=== PATIENT | female | born 1995 | race Caucasian/White ===

== ENCOUNTER 2020-08-12 17:06 | Emergency (ER) | payer MEDICAID, SELFPAY ==
[2020-08-12 19:06] VITALS: BP 164/82; PULSE 100; RESP 16; TEMP 37.6; O2SAT 100; BMI 27.4
--- NOTE | 2020-08-12 19:17 | ED_ITS ---
HPI - Skin/Abscess/Foreign Bdy General Chief complaint: Skin/Abscess/Foreign Body Stated complaint: rash Time Seen by Provider: 08/12/20 19:17 Source: patient Mode of arrival: ambulatory Limitations: no limitations History of Present Illness HPI narrative: 25 y/o female presenting with 3 weeks of red, raised, blotchy, itchy rash to her body. She reports the rash started shortly after she got a new comforter for her bed. It also started shortly after she took an unknown OTC medication for sinus problems, does not recall the name. She went to an Urgent Care last week who prescribed her Zyrtec. She reports some improvement with this. When she forgot to take it her itching got significantly worse. The rash has been spreading and it is now on her arms, legs, abdomen and back. She denies wheezing, SOB or facial swelling. No history of similar episodes. MD complaint: rash Onset (ago): week(s) (3) Tetanus up to date: unsure Location: generalized Severity: moderate Quality: burning, constant and pruritic Pain Consistency: constant Relieving factors: medication Related Data Previous Rx's Medication Instructions Recorded diphenhydramine HCl [Benadryl 25 mg PO TID PRN #20 tab 08/12/20 Allergy] hydrocortisone 1 appl TOPICAL BID #28.35 g 08/12/20 prednisone 10 mg PO PER PKG DIR #48 ea 08/12/20 Allergies Allergy/AdvReac Type Severity Reaction Status Date / Time No Known Allergies Allergy Unverified 01/10/20 17:11 [No Known Allergies*] Review of Systems 2 Review of Systems: Constitutional: No Fever, No Chills Cardiovascular: No Chest Pain, No SOB, Respiratory: No Cough, No Sputum, No Wheezing, No dyspnea Gastrointestinal: No Nausea, No Vomiting, No Diarrhea, No abdominal Pain Genitourinary: No Dysuria, No Urinary Frequency, No Hematuria Musculoskeletal: No joint pain, No Myalgias Skin: No Skin Lesions, + rash Neuro: No Weakness, No Numbness, No Dizziness, No Headache Heme/Lymph: No Bruising, No Lymphadenopathy PMFSH Past Medical History Attestation statement: The following information was validated with the patient. Social History Social History Advance Directives: No Advance Directives Information Provided: Yes Physical Exam Vital Signs: Vital Signs: Last Vital Signs Temp 99.7 F 08/12/20 19:06 Pulse 100 08/12/20 19:06 Resp 16 08/12/20 19:06 BP 164/82 H 08/12/20 19:06 Pulse Ox 100 08/12/20 19:06 Body Mass Index 27.4 Appearance: Alert. Oriented X3. No acute distress. HEENT: normal inspection, no facial swelling. CVS: Normal heart rate and rhythm. Pulses normal. Respiratory: No respiratory distress. Lung sounds clear throughout. Skin: Skin warm and dry. Normal skin color. Normal skin turgor. Erythematous blotchy papular rash on forearms,lower legs, abdomen and lower back. +blanching. +pruruitic, no warmth. Extremities: blotchy, red, rash scattered on all 4 extremities, no swelling, no cellulitic areas, no trauma Neuro: Oriented X 3. Non-focal. Steady gait. Course Course Course Narrative: 25 y/o female presenting with pruritic rash on extremities and trunk after using a new comforter. Likely contact or irritant dermatitis. Lungs are clear, no airway involvement. Some improvement with Zyrtec initially. Will add Benadryl and steroid taper. Advised to discard new comforter and f/u with her PCP this Tuesday. She agrees with plan and will come back to the ER if symptoms worsen despite treatment. Stable for discharge. Critical Care Time Critical Care Time Critical Care Time: No Discharge Plan Discharge Clinical Impression: Contact dermatitis Qualifiers: Contact dermatitis type: irritant Contact dermatitis trigger: unspecified trigger Qualified Code(s): L24.9 - Irritant contact dermatitis, unspecified cause Patient Disposition: Home, Self-Care Instructions: Contact Dermatitis (ED) Additional Instructions: Recommend changing your comforter. Use hypoallergienic laundry detergent. Take Benadryl 25-50 mg every 6 hours as needed for itching. Take the Prednisone taper as prescribed. Do not stop this until it is completely gone. Follow up with your doctor this week. If you have worsening rash or develop wheezing, facial swelling or any other concerning symptom come back to the ER for further evaluation. Prescriptions: New prednisone 10 mg tablets,dose pack 10 mg PO PER PKG DIR Qty: 48 RF: 0 diphenhydramine HCl [Benadryl Allergy] 25 mg tablet 25 mg PO TID PRN (Reason: itching) Qty: 20 RF: 0 hydrocortisone 2.5 % ointment 1 appl topical BID Qty: 28.35 RF: 0 Stand Alone Forms: Work/School Release
== END 2020-08-12 20:03 | disposition home or self-care (01) ==
LOC: HO.ED 19:27
PROVIDERS: Emergency Provider Emergency Medicine; PCP Internal Medicine
DX: L24.9 Irritant contact dermatitis, unspecified cause (principal); R21 Rash and other nonspecific skin eruption
CPT/HCPCS: 99283; 99284

== ENCOUNTER → 2021-04-30 15:33 | Outpatient (BNVA) | payer MEDICAID, SELFPAY | PROVIDERS: Visit Provider Obstetrics & Gynecology ==

== ENCOUNTER 2021-09-12 12:54 | Emergency (ER) | payer MEDICAID, SELFPAY ==
[2021-09-12] VITALS (7 sets, daily range): BP systolic 128–149; BP diastolic 86–95; PULSE 85–121; RESP 14–18; TEMP 36.9; O2SAT 98–100; BMI 29.7
[2021-09-12 14:18] LABS: MANUAL DIFF FLAG NO
[2021-09-12 14:19] LABS: Basophils Percent Auto 0.4 % (0-2); Eosinophils Absolute Auto 0.2 X10*3/uL (0.0-0.4); Eosinophils Percent Auto 3.4 % (0-4); Hematocrit 39.6 % (37.0-47.0); Hemoglobin 13.1 g/dl (12.0-16.0); Imm Gran Abs Auto 0.02 X10*3/uL (0.00-0.03); Imm Gran Pct Auto 0.3 % (0.0-0.4); Lymphocytes Absolute Auto 1.7 X10*3/uL (1.2-4.9); Mean Corpuscular HGB Conc 33.1 g/dl (31.0-35.0); Mean Corpuscular Hemoglobin 28.4 pg (27.0-33.0); Mean Corpuscular Volume 85.7 fL (80.0-98.0); Mean Platelet Volume 9.2 fL (9.4-12.3); Monocytes Absolute Auto 0.5 X10*3/uL (0.1-1.2); Monocytes Percent Auto 7.4 % (2-11); Neutrophils Absolute Auto 4.3 x10*3/uL (2.0-8.3); Neutrophils Percent Auto 63.5 % (45-73); Platelet Count 290 X10*3/uL (160-400); Red Blood Count 4.62 X10*6/uL (4.20-5.50); Red Cell Distribution Width 12.8 % (11.0-16.0); White Blood Count 6.8 X10*3/uL (4.8-10.8)
[2021-09-12 14:33] LABS: Anion Gap 10 (12-20); Blood Urea Nitrogen 8 mg/dL (9-16); Calcium 9.2 mg/dL (8.4-10.2); Carbon Dioxide 25 mmol/L (22-29); Chloride 107 mmol/L (96-108); Creatinine Clr Calc Pharmacy 104.4; Estimated Glomerular Filt Rate > 60; Glucose Random 102 mg/dL (60-115); Potassium 3.9 mmol/L (3.3-5.1); Sodium 138 mmol/L (135-145)
--- NOTE | 2021-09-12 15:39 | ED.FEMALEGU ---
HPI - Female Genitourinary General Chief complaint: Vaginal Bleeding Stated complaint: dizziness Time Seen by Provider: 09/12/21 15:34 Source: patient Mode of arrival: ambulatory Limitations: no limitations History of Present Illness HPI Narrative: 26 yo female here with reports of vaginal bleeding since yesterday. She took herself off Depo 1 month ago. She tells me she is not sexually active currently. She denies any associated abdominal pain, fevers, chills, vaginal discharge, vomiting. Patient tells me that she has used multiple pads yesterday and today. She tells me when she walks around she feels very lightheaded and dizzy. Related Data Home Medications Medication Instructions Recorded Confirmed cetirizine 10 mg tablet 10 mg PO DAILY 04/30/21 medroxyprogesterone 150 mg/mL mg IM 04/30/21 intramuscular suspension metoprolol succinate 25 mg 12.5 mg PO DAILY 04/30/21 tablet,extended release 24 hr Previous Rx's Medication Instructions Recorded diphenhydramine HCl 25 mg tablet 25 mg PO TID PRN #20 tab 08/12/20 (Benadryl Allergy) Allergies Allergy/AdvReac Type Severity Reaction Status Date / Time No Known Allergies Allergy Verified 09/12/21 13:18 [No Known Allergies*] Review of Systems Review of Systems: Yes all other systems are reviewed and are negative Constitutional: Constitutional: Reports no additional constitutional complaints, Denies body ache(s), Denies chills, Denies fever(s), Denies headache(s) and Denies weakness Eyes: Eyes: Reports no additional eye complaints and Denies change in vision ENT: Reports system reviewed and no additional complaints, except as documented, Denies dizziness, Denies headache(s), Denies nasal congestion, Denies nasal discharge and Denies neck pain Cardiovascular: Cardiovascular: Reports no additional cardiovascular complaints, Denies chest pain, Denies leg edema and Denies dyspnea Respiratory: Respiratory: Reports no additional respiratory complaints, Denies cough and Denies dyspnea Gastrointestinal: Gastrointestinal: Reports no additional gastrointestinal complaints, Denies abdominal pain, Denies diarrhea, Denies nausea and Denies vomiting Genitourinary: Genitourinary: Reports no additional female genitourinary complaints, Reports abnormal vaginal bleeding and Denies urinary incontinence Musculoskeletal: Musculoskeletal: Reports no additional musculoskeletal complaints, Denies back pain, Denies arthralgias, Denies joint swelling, Denies neck pain, Denies numbness and Denies tingling Integumentary/Breasts: Skin/Breast: Reports system reviewed and no additional complaints, except as docu and Denies rash Neurologic: Reports system reviewed and no additional complaints, except as documented, Denies Abnormal speech present, Denies dizziness, Denies headache(s), Denies numbness, Denies tingling and Denies weakness PMF Past Medical History Attestation statement: The following information was validated with the patient. Source: old records reviewed and nursing notes reviewed Medical History Hypertension Social History Social History Alcohol intake: never Patient Tobacco Use Status: Never used Tobacco Advance Directives: No Advance Directives Information Provided: No Physical Exam Vital Signs: Vital Signs: Last Vital Signs Temp 98.4 F 09/12/21 15:55 Pulse 97 09/12/21 19:43 Resp 14 09/12/21 19:43 BP 134/89 09/12/21 19:43 Pulse Ox 98 09/12/21 19:43 BMI result Body Mass Index 29.7 Const: General: cooperative, healthy appearing, comfortable and no acute distress Orientation/consciousness: patient oriented x3 Limitations: no limitations HEENT: Head: Yes normal to inspection Ears: hearing grossly normal bilaterally General nose exam: Normal external nose present Face and sinus: Yes normal facial exam Mouth: Normal oral and palatal mucosa present Throat: Yes posterior oropharynx normal Eyes: General: appearance normal, both eyes and all related structures Pupils: Equal, round and reactive pupils present Neck: Neck: Yes normal visual inspection Chest: Chest palpation & inspection: normal inspection of the chest Resp: Effort & Inspection: normal respiratory effort Auscultation: clear to auscultation bilaterally Cardio: Rate: regular rate Rhythm: regular rhythm Peripheral pulses: Peripheral pulses 2+ throughout GI: Inspection: Yes normal to inspection Palpation (GI): Soft to palpation and nontender Auscultation: normal bowel sounds : 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 CMT or adenxal tenderness External Female Exam: normal external appearance Speculum Exam - Vagina: vaginal bleeding (moderate-no clots) Speculum Exam - Cervix: normal appearance of the cervix Bimanual exam- vagina & uterus: normal bimanual exam Bimanual Exam- Adnexa, other: normal adnexae OB/external & speculum: vaginal bleeding (moderate-no clots) Back/Spine/Pelvis: Thoracic/Lumbar Spine: thoracic and lumbar spine normal to inspection Skin: General skin exam: no rashes or lesions noted Neuro: General: patient oriented x3, no focal motor deficits and normal sensation to monofilament Cranial nerves: Yes Equal, round and reactive pupils present Cognition (Neuro): normal cognition Speech: No Abnormal speech present Gait exam (Neuro): Normal gait present Motor exam (neuro): 5/5 motor strength present throughout Extrem: General: Yes normal to inspection, Yes no pedal edema and Yes no calf tenderness Course Course Course Narrative: 26-year-old female here with heavy external bleeding since last night. No associated abdominal pain. She is feeling lightheaded and dizzy when she moves around. Will check labs, UA, urine , orthostatic vital signs and obtain a pelvic exam Reevaluation(s) Reevaluation #1: HGB has remained stable for 5 hours. patient has changed her pad twice since being here. We discussed oral control but patient not interested. She plans on having a tubal ligation in the future and does not want control until then. Reviewed worrisome signs.symptoms with patient and when to seek additional care. Comfortable with discharge home. Time: 19:30 MDM - Female Genitourinary MDM Narrative Medical decision making narrative: menorrhagia, vs ectopic vs SAB Medical Records Attestation: I reviewed the patient's medical records. Lab Data Attestation: I reviewed the patient's lab results. Result diagrams: 09/12/21 19:07 09/12/21 14:15 Labs: Lab Results 09/12/21 09/12/21 09/12/21 Range/Units 14:15 14:15 16:24 WBC 6.8 (4.8-10.8) X10*3/uL RBC 4.62 (4.20-5.50) X10*6/uL Hgb 13.1 (12.0-16.0) g/dl Hct 39.6 (37.0-47.0) % MCV 85.7 (80.0-98.0) fL MCH 28.4 (27.0-33.0) pg MCHC 33.1 (31.0-35.0) g/dl RDW 12.8 (11.0-16.0) % Plt Count 290 (160-400) X10*3/uL MPV 9.2 L (9.4-12.3) fL Immature Gran % (Auto) 0.3 (0.0-0.4) % Neut % (Auto) 63.5 (45-73) % Lymph % (Auto) 25.0 (20-40) % [place] % (Auto) 7.4 (2-11) % Eos % (Auto) 3.4 (0-4) % Baso % (Auto) 0.4 (0-2) % Lymph # (Auto) 1.7 (1.2-4.9) X10*3/uL [place] # (Auto) 0.5 (0.1-1.2) X10*3/uL Eos # (Auto) 0.2 (0.0-0.4) X10*3/uL Baso # (Auto) 0.0 (0.0-0.2) X10*3/uL Abs Immat Gran (auto) 0.02 (0.00-0.03) X10*3/uL Absolute Neuts (auto) 4.3 (2.0-8.3) x10*3/uL Absolute Nucleated RBC 0.000 (0.0-0.012) X10*3/uL Nucleated RBC % (auto) 0.0 (0.0-0.2) /100WBC Sodium 138 (135-145) mmol/L Potassium 3.9 (3.3-5.1) mmol/L Chloride 107 (96-108) mmol/L Carbon Dioxide 25 (22-29) mmol/L Anion Gap 10 L (12-20) BUN 8 L (9-16) mg/dL Creatinine 0.82 (0.5-1.4) mg/dL Estim Creat Clear Calc 104.4 Estimated GFR > 60 Random Glucose 102 (60-115) mg/dL Calcium 9.2 (8.4-10.2) mg/dL Urine Color RED A Urine Appearance CLOUDY Urine pH 6.0 (5.0-8.0) Ur Specific [place] >= 1.030 H (1.005-1.025) Urine Protein 2+ H (NEG-TRACE) MG/DL Urine Glucose (UA) NEG (NEG) MG/DL Urine Ketones NEG (NEG) MG/DL Urine Blood 3+ H (NEG) Urine Nitrite NEG (NEG) Ur Leukocyte Esterase NEG (NEG) Urine RBC TNTC H (0) /HPF Urine WBC 1-4 (0-4) /HPF Ur Squamous Epith Cells TRACE /LPF Urine Bacteria NONE /LPF Urine Mucus TRACE /LPF Urine Test (NEGATIVE) 09/12/21 09/12/21 Range/Units 16:24 19:07 WBC 8.3 (4.8-10.8) X10*3/uL RBC 4.42 (4.20-5.50) X10*6/uL Hgb 12.6 (12.0-16.0) g/dl Hct 38.1 (37.0-47.0) % MCV 86.2 (80.0-98.0) fL MCH 28.5 (27.0-33.0) pg MCHC 33.1 (31.0-35.0) g/dl RDW 12.8 (11.0-16.0) % Plt Count 301 (160-400) X10*3/uL MPV 9.1 L (9.4-12.3) fL Immature Gran % (Auto) 0.1 (0.0-0.4) % Neut % (Auto) 66.3 (45-73) % Lymph % (Auto) 24.0 (20-40) % [place] % (Auto) 7.1 (2-11) % Eos % (Auto) 2.1 (0-4) % Baso % (Auto) 0.4 (0-2) % Lymph # (Auto) 2.0 (1.2-4.9) X10*3/uL [place] # (Auto) 0.6 (0.1-1.2) X10*3/uL Eos # (Auto) 0.2 (0.0-0.4) X10*3/uL Baso # (Auto) 0.0 (0.0-0.2) X10*3/uL Abs Immat Gran (auto) 0.01 (0.00-0.03) X10*3/uL Absolute Neuts (auto) 5.5 (2.0-8.3) x10*3/uL Absolute Nucleated RBC 0.000 (0.0-0.012) X10*3/uL Nucleated RBC % (auto) 0.0 (0.0-0.2) /100WBC Sodium (135-145) mmol/L Potassium (3.3-5.1) mmol/L Chloride (96-108) mmol/L Carbon Dioxide (22-29) mmol/L Anion Gap (12-20) BUN (9-16) mg/dL Creatinine (0.5-1.4) mg/dL Estim Creat Clear Calc Estimated GFR Random Glucose (60-115) mg/dL Calcium (8.4-10.2) mg/dL Urine Color Urine Appearance Urine pH (5.0-8.0) Ur Specific [place] (1.005-1.025) Urine Protein (NEG-TRACE) MG/DL Urine Glucose (UA) (NEG) MG/DL Urine Ketones (NEG) MG/DL Urine Blood (NEG) Urine Nitrite (NEG) Ur Leukocyte Esterase (NEG) Urine RBC (0) /HPF Urine WBC (0-4) /HPF Ur Squamous Epith Cells /LPF Urine Bacteria /LPF Urine Mucus /LPF Urine Test NEGATIVE (NEGATIVE) Discharge Plan Discharge Clinical Impression: Menometrorrhagia Patient Disposition: Home, Self-Care Instructions: Menorrhagia (ED) Additional Instructions: Your labs are reassuring Your urine shows no signs of infection 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
[2021-09-12 16:35] LABS: UPreg QC Valid YES; Urine Pregnancy NEGATIVE (NEGATIVE)
[2021-09-12 16:37] LABS: Appearance Urine CLOUDY; Color Urine RED; Glucose Urine UA NEG (NEG); Leukocyte Esterase Urine NEG (NEG); Nitrite Urine NEG (NEG); Specific Gravity - Urine >= 1.030 (1.005-1.025); UACC Culture Trigger NO; Urine Blood 3+ (NEG); Urine Ketones NEG (NEG); Urine Protein 2+ MG/DL (NEG-TRACE)
[2021-09-12 16:41] LABS: RBC Urine TNTC /HPF (0); Squamous Epithelial Cell Urine TRACE /LPF
[2021-09-12 16:42] LABS: Mucus Urine TRACE /LPF
[2021-09-12 19:10] LABS: MANUAL DIFF FLAG NO
[2021-09-12 19:12] LABS: Basophils Percent Auto 0.4 % (0-2); Eosinophils Absolute Auto 0.2 X10*3/uL (0.0-0.4); Eosinophils Percent Auto 2.1 % (0-4); Hematocrit 38.1 % (37.0-47.0); Hemoglobin 12.6 g/dl (12.0-16.0); Imm Gran Abs Auto 0.01 X10*3/uL (0.00-0.03); Imm Gran Pct Auto 0.1 % (0.0-0.4); Mean Corpuscular HGB Conc 33.1 g/dl (31.0-35.0); Mean Corpuscular Hemoglobin 28.5 pg (27.0-33.0); Mean Corpuscular Volume 86.2 fL (80.0-98.0); Mean Platelet Volume 9.1 fL (9.4-12.3); Monocytes Absolute Auto 0.6 X10*3/uL (0.1-1.2); Monocytes Percent Auto 7.1 % (2-11); Neutrophils Absolute Auto 5.5 x10*3/uL (2.0-8.3); Neutrophils Percent Auto 66.3 % (45-73); Platelet Count 301 X10*3/uL (160-400); Red Blood Count 4.42 X10*6/uL (4.20-5.50); Red Cell Distribution Width 12.8 % (11.0-16.0); White Blood Count 8.3 X10*3/uL (4.8-10.8)
--- NOTE | 2021-09-12 19:20 | PC.NURSE ---
pt a&ox3, vss, denies any dizziness/pain at this time. pt requesting food. pending lab results.
[2021-09-13 02:20] LABS: CT PCR DETECTED (Not Detect.); NG PCR DETECTED (Not Detect.)
[2021-09-13 11:48] LABS: BV Int Neg Control Negative (Negative); BV Int Pos Control Positive (Positive)
== END 2021-09-12 19:44 | disposition home or self-care (01) ==
PROVIDERS: Nurse Practitioner Family; Emergency Provider Emergency Medicine Emergency Medical Services; PCP Internal Medicine
DX: N92.1 Excessive and frequent menstruation with irregular cycle (principal); R42 Dizziness and giddiness; Z79.899 Other long term (current) drug therapy; Z20.2 Contact with and (suspected) exposure to infections with a predominantly sexual mode of transmission
CPT/HCPCS: 36415; 80048; 81001; 81025; 85025; 87480; 87491; 87510; 87591; 87660; 99284

== ENCOUNTER 2021-09-15 16:10 | Emergency (ER) | payer MEDICAID, SELFPAY ==
[2021-09-15 17:18] VITALS: BP 147/97; PULSE 104; RESP 18; TEMP 36.9; O2SAT 98; BMI 29.2
--- NOTE | 2021-09-15 18:19 | ED_ITS ---
HPI - Female Genitourinary General Chief complaint: General Medical Stated complaint: bleeding/shot needed Time Seen by Provider: 09/15/21 18:16 Source: patient Mode of arrival: ambulatory Limitations: no limitations History of Present Illness HPI Narrative: 26-year-old female who was seen here on 09/12/2021 for abnormal vaginal bleeding and had swabs done although was not treated for an STD and I called her back today reporting that she was positive for gonorrhea and chlamydia and that she had to be treated. She also brought her significant other at bedside. She reports that she has been with him for 7 years and she was recently tested in 2019 and she was negative for gonorrhea/chlamydia in all other STDs. They report that they do not know how they got this STD. They are also asking if they could have guided from sharing drinks I explained to them and educated them about STDs. Otherwise she reports that she is no longer having any vaginal bleeding she is not having any fevers, chills, dizziness, headaches, chest pain or shortness of breath, abdominal pain, dysuria, hematuria, abnormal vaginal discharge, rashes, lesions or any other symptoms complaints or concerns at this time. Related Data Home Medications Medication Instructions Recorded Confirmed cetirizine 10 mg tablet 10 mg PO DAILY 04/30/21 medroxyprogesterone 150 mg/mL mg IM 04/30/21 intramuscular suspension metoprolol succinate 25 mg 12.5 mg PO DAILY 04/30/21 tablet,extended release 24 hr Previous Rx's Medication Instructions Recorded diphenhydramine HCl 25 mg tablet 25 mg PO TID PRN #20 tab 08/12/20 (Benadryl Allergy) doxycycline monohydrate 100 mg 100 mg PO BID 10 Days #20 tab 09/15/21 tablet Allergies Allergy/AdvReac Type Severity Reaction Status Date / Time No Known Allergies Allergy Verified 09/12/21 13:18 [No Known Allergies*] Review of Systems Review of Systems: Constitutional : No Weight loss, No Fever, No Chills, No Night Sweats, No Fatigue, No Malaise ENT/Mouth : No Hearing loss, No Ear Pain, No Nasal Congestion, No Sinus Pain, No Hoarseness, No sore throat, No Rhinorrhea, No Swallowing Difficulty Eyes: No Eye Pain, No Swelling, No Redness, No Foreign Body, No Discharge, No Vision Changes Cardiovascular : No Chest Pain, No SOB, No Dyspnea on Exertion, No Orthopnea, No Edema, No Palpitations Respiratory : No Cough, No Sputum, No Wheezing, No Smoke Exposure, No Dyspnea Gastrointestinal : No Nausea, No Vomiting, No Diarrhea, No Constipation, No abdominal Pain, No Hematochezia, No Melena Genitourinary : no irregular bleeding, No Dysuria, No Urinary Frequency, No Hematuria, No Urinary Incontinence, No Urgency, No Flank Pain, No Urinary Flow Changes, No Hesitancy Musculoskeletal : No joint pain, No Myalgias, No Joint Swelling Skin : No Skin Lesions, No rash Neuro : No Weakness, No Numbness, No Paresthesias, No Loss of Consciousness, No Dizziness, No Headache Psych : No Anxiety/Panic, No Depression, No SI/HI/AH/VH, No Social Issues, Heme/Lymph: No Bruising, No Bleeding,No Lymphadenopathy Endocrine : No Polyuria, No Polydipsia, No Temperature Intolerance Yes all other systems are reviewed and are negative COUNT INCLUDES THE [facility] Past Medical History Attestation statement: The following information was validated with the patient. Medical History Hypertension Social History Social History Alcohol intake: never Patient Tobacco Use Status: Never used Tobacco Physical Exam Vital Signs: Vital Signs: Last Vital Signs Temp 98.4 F 09/15/21 17:18 Pulse 104 H 09/15/21 17:18 Resp 18 09/15/21 17:18 BP 147/97 H 09/15/21 17:18 Pulse Ox 98 09/15/21 17:18 BMI result Body Mass Index 29.2 vital signs have been reviewed as normal and appeared to be correct. Blood pressure normal. Heart rate normal. Respiration rate normal. Temperature normal. Oxygen saturation normal. Appearance: Alert. Oriented X3. No acute distress. Head: Normal external exam. Normocephalic. Eyes: PERRLA. EOMI. Conjunctiva and sclera normal. Eyelids normal. ENT: Pharynx normal. Uvula midline. Moist mucous membranes. No trismus noted. No drooling noted. No muffled voice noted. Neck: Normal inspection. Neck supple. FROM. No adenopathy. No meningeal signs. CVS: Normal heart rate and rhythm. Heart sound normal. No murmurs noted. Pulses normal throughout. Respiratory: No respiratory distress. Painless inspiration. Breath sounds normal. No wheezes/rales/rhonchi noted. Chest nontender. No accessory muscle usage noted or decreased air movement noted. Abdomen: Soft and nontender. Nondistended. No guarding. No rigidity. Bowel sounds normal in all 4 quadrants. No distention noted. No organomegaly noted. No visible injury noted. No rebound tenderness. Negative Rovsing sign. Negative obturator's sign. Negative psoas sign. Negative Patiño sign. Back: No CVA tenderness. Full range of motion noted. Skin: Skin warm and dry. Normal skin color. Normal skin turgor. No rashes/lesions/lacerations noted. Extremities: Extremities exhibit normal range of motion. Extremities nontender. Neuro: Oriented X 3. No motor deficit. No sensory deficit. Reflexes normal. Normal steady gait. CN's II-XII intact bilaterally? Course Course Course Narrative: Patient positive for gonorrhea chlamydia. Will treat at this time with 500 mg of IM Rocephin and 100 mg of b.i.d. doxy for 10 days along with instructions to not have any sexual intercourse until treatment is completely finish and all partners after be treated although patient reports she only has 1 partner who is with her at bedside and he also denies any other partners they are unsure how they sustained this STD and I explained to them that they most likely got it from sexual intercourse. No additional labs or imaging indicated at this time. Will DC home with instructions return if any new or worsening symptoms. Patient with significant other at bedside understand agree this plan. MDM - Female Genitourinary Medical Records Attestation: I reviewed the patient's medical records. Lab Data Attestation: I reviewed the patient's lab results. Discharge Plan Discharge Clinical Impression: Gonorrhea, Chlamydia Patient Disposition: Home, Self-Care Instructions: Chlamydia (ED), Sexually Transmitted Diseases (ED), Gonorrhea (ED) Prescriptions: New doxycycline monohydrate 100 mg tablet 100 mg PO BID 10 Days Qty: 20 0RF No Action diphenhydramine HCl [Benadryl Allergy] 25 mg tablet 25 mg PO TID PRN (Reason: itching) Qty: 20 0RF cetirizine 10 mg tablet 10 mg PO DAILY 0RF medroxyprogesterone 150 mg/mL suspension IM 0RF metoprolol succinate 25 mg tablet extended release 24 hr 12.5 mg PO DAILY 0RF Referrals: Mercy French MD [Primary Care Provider] - 2 days Print Language: Japanese
[2021-09-15] MEDS: cefTRIAXone sodium 500 MG, Lidocaine HCl 1 % MPF 1 ML IM (19:18)
== END 2021-09-15 19:22 | disposition home or self-care (01) ==
LOC: HO.ED 18:56
PROVIDERS: Emergency Provider Internal Medicine; PCP Internal Medicine
DX: A54.9 Gonococcal infection, unspecified (principal); A74.9 Chlamydial infection, unspecified; N93.8 Other specified abnormal uterine and vaginal bleeding; Z79.899 Other long term (current) drug therapy
CPT/HCPCS: 96372; 99284; J0696

== ENCOUNTER 2021-09-17 11:23 | Outpatient (REF) | payer MEDICAID, SELFPAY ==
[2021-09-18 04:55] LABS: HBsAGNum1 0.74 S/CO (0.00-0.99); HIV AB/AG Nonreactive (Nonreactive); HIV Num 1 0.04 S/CO (0.00-0.99); Hepatitis B Surface Antigen Negative (Negative); ~HepC Num1 0.13 S/CO (0.00-0.79); ~Hepatitis C Antibody Nonreactive (Nonreactive)
[2021-09-18 07:50] LABS: Syphilis Screen Nonreactive (Nonreactive)
== END 2021-09-17 11:24 | disposition home or self-care (01) ==
LOC: HO.LAB 11:23
PROVIDERS: PCP Internal Medicine; Visit Provider Advanced Practice Midwife
DX: Z11.4 Encounter for screening for human immunodeficiency virus [HIV] (principal); A54.9 Gonococcal infection, unspecified; A74.9 Chlamydial infection, unspecified; Z20.2 Contact with and (suspected) exposure to infections with a predominantly sexual mode of transmission
CPT/HCPCS: 36415; 81025; 86780; 86803; 87340; 87389; 99202

== ENCOUNTER 2021-10-08 11:25 | Outpatient (REF) | payer MEDICAID, SELFPAY ==
[2021-10-09 01:17] LABS: CT PCR NOT DETECTED (Not Detect.); NG PCR NOT DETECTED (Not Detect.)
[2021-10-09 08:33] LABS: BV Int Neg Control Negative (Negative); BV Int Pos Control Positive (Positive)
== END 2021-10-08 11:26 | disposition home or self-care (01) ==
LOC: HO.LAB 11:25
PROVIDERS: Visit Provider Advanced Practice Midwife
DX: Z01.419 Encounter for gynecological examination (general) (routine) without abnormal findings (principal); A74.9 Chlamydial infection, unspecified; A54.9 Gonococcal infection, unspecified; Z11.3 Encounter for screening for infections with a predominantly sexual mode of transmission; Z11.59 Encounter for screening for other viral diseases; Z11.4 Encounter for screening for human immunodeficiency virus [HIV]
CPT/HCPCS: 87480; 87491; 87510; 87591; 87660; 88142

== ENCOUNTER 2022-12-31 13:41 | Outpatient (AMB) | payer MEDICAID, SELFPAY ==
[2022-12-31 14:14] VITALS: BP 144/82; BMI 27.1
--- NOTE | 2022-12-31 14:14 | MHC.OFFVIS ---
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 Required: Yes Cartography Supervisor Language: Lao Information Interpreted: non-clinical & clinical Telemarketing Sales Representative: Telemarketing Sales Representative Present (Pratik) Allergies No Known Allergies [No Known Allergies*] Allergy (Verified 12/31/22 14:18) Medication List - Last Reconciled 12/31/22 by Adrienne Peña CNM cetirizine 10 mg PO DAILY metoprolol succinate ER 12.5 mg PO DAILY Is last menstrual period known: Yes Last menstrual period: 12/06/22 Post menopausal: No 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 Her last Pap smear was negative. It did mention in the history of it that she had had a history of an abnormal but today she does not remember when she would have had a abnormal Pap. She did have chlamydia and gonorrhea last year from her previous partner she is now with a new partner for the last 7 months. She is open to with him. He has not had any babies he is 28 years old. She has 2 children from previous relationships 1 delivered in [place] and 1 delivered in [place]. She told the medical education manager she was the taking metoprolol for blood pressure but she says she has not seen her primary doctor in a very long time at the [facility] and also that she has not taken the metoprolol in at least a year but she does not really remember when it was that she last took it. She noticed that her blood pressure was up a little bit and she was wondering if it was because of the pumpkin latte coffee that she had PFSH Medical History (Updated 12/31/22 @ 15:13 by Adrienne Peña CNM) Hypertension Surgical History (Updated 12/31/22 @ 14:22 by JOSE Armstrong) Hx of dilation and curettage Social History Alcohol intake: never Patient Tobacco Use Status: Never used Tobacco Gender identity: Female Female Reproductive History Menstrual Age of Menarche: 11 Duration of menses: 3-5 days Date of last menstrual period: 12/06/22 control method: none Total pregnancies: 3 Full term: 2 Number of Living Children: 2 Ab spontaneous: 1 Date of last pap smear: 10/09/21 (negative) History of abnormal pap smear: No Physical Exam Vital Signs: Last Vital Signs BP 144/82 H 12/31/22 14:14 BMI result Body Mass Index 27.1 Const General: healthy appearing, comfortable, no acute distress, well developed and alert Nutritional Appearance: average body habitus Orientation/consciousness: patient oriented x3 Limitations: no limitations HEENT Head: Yes normocephalic Neck Neck: Yes normal visual inspection Chest Chest palpation & inspection: normal inspection of the chest Breast/axilla inspection: normal inspection of the breasts and normal inspection of the axillae Breast/axilla palpation: normal palpation of the breasts and normal palpation of the axillae Resp Effort & Inspection: normal respiratory effort GI Inspection: Yes normal to inspection, No Abdominal wall edema and No distended Palpation (GI): Soft to palpation and nontender Other: Vagina pink and moist cervix multiparous pink moist clear mucus. Mobile nontender uterus slightly retroverted mobile nontender not enlarged good tone with Kegel General: Yes bladder normal to palpation External Female Exam: normal external appearance and normal appearance of the urethra Speculum Exam - Vagina: normal appearance of the vagina, normal palpation and normal vaginal discharge Speculum Exam - Cervix: normal appearance of the cervix, normal palpation and nontender Bimanual exam- vagina & uterus: normal bimanual exam, normal palpation, uterine size normal, bladder normal to palpation, consistency normal, normal palpation, uterine mobility normal, uterine shape normal, No Cervical tenderness present, non-tender and no cervical motion tenderness Bimanual Exam- Adnexa, other: normal adnexae, no masses, normal and No adnexal tenderness Neuro General: patient oriented x3 Results Reviewed Results Reviewed: Name: Rakesh Rivera Age/Sex: 26/F Attending: Adrienne Peña CNM : 1995 Submitted by: Adrienne Peña CNM Copies to: MR #: [id number] Status: DEP REF Collected: 10/08/21 Location: .LAB Received: 10/09/21 Interpretation Satisfactory for evaluation. Mild inflammation. Negative for intraepithelial lesion or malignancy. Clinical Information LMP:Unknown date Previous PAP test: 2018, WNL Other history: Hx of abnormal pap Material Received ThinPrep-Cervical Electronically Signed By: QUIRINO Chapa (ASCP) 10/22/21 0945 The Pap Test is a screening procedure with the inherent possibility of both false negative and false positive results. Results should be interpreted in the context of historic and current clinical findings. Reliability of the Pap Test is enhanced by performing the test on a regular repetitive basis. Patient: Rakesh Rivera Age/Sex: 26/F MR#: [id number] Page 1 of 1 Assessment & Plan Assessment & Plan (1) Cervical cancer screening: Comment: pt has hx abnl ?(this is what she stated in 2021; in 2022 she does not remember had an abnormal), 10/08/21 pap= neg Code(s): Z12.4 - Encounter for screening for malignant neoplasm of cervix (2) Well woman exam with routine gynecological exam: Code(s): Z01.419 - Encounter for gynecological examination (general) (routine) without abnormal findings (3) Potential exposure to STD: Comment: initial screening for hiv,hepb,hepc,syphilis all neg... Code(s): Z20.2 - Contact with and (suspected) exposure to infections with a predominantly sexual mode of transmission (4) Family planning advice: Code(s): Z30.09 - Encounter for other general counseling and advice on contraception (5) Hypertension: Comment: 12/31/2022 states she has not been taking meds for at least a year secondary to missed appointments Code(s): I10 - Essential (primary) hypertension Plan Reviewed her history. Recommend that she call her primary care provider and try to get an appointment soon and when she is given appointments that do not work for her to try an rearrange so that it is an appointment that actually she can make. Discussed that if she is open to she she would be well advised to be on a blood pressure medicine that would be acceptable to take in early . I asked her to be honest with her primary care provider about wanting a . Additionally because we can only take care of low risk pregnancies here I recommend that if she should get she should seek care at [facility] from the start. She actually inquired as to what her partner should do to find out what he can do to help father a I recommend that she ask him to see his primary care doctor and start with a sperm count and follow it what ever recommendations are given after that. In the meantime discussed healthy self-care. I clarified the patient's past Pap history and this time she does not remember past abnormal Pap and since last year's Pap was normal it is not necessary to do is year. Testing was done for gonorrhea chlamydia trich Gardnerella and Tara Orders: Orders Bacterial Vaginosis Panel Today Z01.419 - Encounter for gynecological examination (general) (routine) without abnormal findings CT NG by PCR Today Z01.419 - Encounter for gynecological examination (general) (routine) without abnormal findings Coding Level of Care Code Est Pt Prev Care 18-39y(93157) Diagnoses Cervical cancer screening Z12.4 Well woman exam with routine gynecological exam Z01.419 Potential exposure to STD Z20.2 Family planning advice Z30.09 Hypertension I10
== END 2022-12-31 15:30 | disposition home or self-care (01) ==
PROVIDERS: PCP Internal Medicine; Visit Provider Advanced Practice Midwife
DX: Z12.4 Encounter for screening for malignant neoplasm of cervix (principal); Z01.419 Encounter for gynecological examination (general) (routine) without abnormal findings; Z20.2 Contact with and (suspected) exposure to infections with a predominantly sexual mode of transmission; Z30.09 Encounter for other general counseling and advice on contraception; I10 Essential (primary) hypertension
CPT/HCPCS: 99395

== ENCOUNTER 2022-12-31 13:41 | Outpatient (REF) | payer MEDICAID, SELFPAY ==
[2023-01-01 09:29] LABS: CT PCR NOT DETECTED (Not Detect.); NG PCR NOT DETECTED (Not Detect.)
[2023-01-01 12:34] LABS: BV Int Neg Control Negative (Negative); BV Int Pos Control Positive (Positive)
== END 2022-12-31 13:42 | disposition home or self-care (01) ==
LOC: HO.LNP 13:41
PROVIDERS: PCP Internal Medicine; Visit Provider Advanced Practice Midwife
DX: Z01.419 Encounter for gynecological examination (general) (routine) without abnormal findings (principal); I10 Essential (primary) hypertension; Z20.2 Contact with and (suspected) exposure to infections with a predominantly sexual mode of transmission; Z79.899 Other long term (current) drug therapy
CPT/HCPCS: 0353U; 87480; 87510; 87660; 99395

== ENCOUNTER 2023-10-11 11:26 | Emergency (ER) | payer SELFPAY ==
[2023-10-11 11:43] VITALS: BP 158/100; PULSE 112; RESP 18; TEMP 37.4; O2SAT 100; BMI 29.0
--- NOTE | 2023-10-11 11:46 | ED_ITS ---
HPI - General Adult General Chief complaint: Dental/Oral Stated complaint: facial swelling Time Seen by Provider: 10/11/23 11:46 Source: patient Mode of arrival: ambulatory Limitations: no limitations History of Present Illness ED Provider: Marcos Carmona PA-C HPI narrative: 28-year-old female healthy presents to ED for right upper molar pain with slight right upper facial swelling. Patient states she is due for root canal for that tooth. Patient denies any recent trauma, headache, fever, chills, drooling, change in voice, chest pain, shortness of breath, neck swelling, or any recent dental work. Related Data Home Medications ?Medication ?Instructions ?Recorded ?Confirmed cetirizine 10 mg tablet 10 mg PO DAILY 04/30/21 12/31/22 metoprolol succinate 25 mg 12.5 mg PO DAILY 04/30/21 12/31/22 tablet,extended release 24 hr Previous Rx's ?Medication ?Instructions ?Recorded amoxicillin 875 mg-potassium 1 tab PO Q12H 10 days #20 tabs 10/11/23 clavulanate 125 mg tablet naproxen 500 mg tablet 500 mg PO BID PRN pain 7 days #14 10/11/23 tabs Allergies Allergy/AdvReac Type Severity Reaction Status Date / Time No Known Allergies Allergy Verified 10/11/23 11:47 [No Known Allergies*] Review of Systems 2 Review of Systems: RIght upper facial swelling. ,molar pain Yes all other systems are reviewed and are negative [facility] Past Medical History Medical History (Updated 10/11/23 @ 11:52 by ROXANNA Cobian) Hypertension Surgical History (Updated 12/31/22 @ 14:22 by JOSE Armstrong) Hx of dilation and curettage Social History Social History Alcohol intake: never Patient Tobacco Use Status: Never used Tobacco Advance Directives: No Advance Directives Information Provided: No Do you have a plan to hurt others: No Plan Gender identity: Female Physical Exam ED Vital Signs: Vital Signs - 24 hr 10/11/23 11:43 10/11/23 12:17 Temperature 99.3 F 97.5 F Pulse Rate 112 H 119 H Respiratory Rate 18 18 Blood Pressure 158/100 H 141/91 H Pulse Oximetry 100 97 Oxygen Delivery Method Room Air Room Air BMI result Body Mass Index 29.0 Const General: cooperative, healthy appearing, comfortable, no acute distress, well developed, alert, awake and Physically active Orientation/consciousness: oriented to person, oriented to time and patient oriented x3 [facility] Head: Yes normal to inspection, Yes No palpable skull fracture present, Yes normocephalic and Yes atraumatic Ears: hearing grossly normal bilaterally, external ears normal, TM's normal bilaterally, TM normal on the right, TM normal on the left, EAC's normal, mastoids normal and no periauricular adenopathy Face images: 2 1. Slight swelling. Negative for any fluctuance, erythema, tenderness, rash, ecchymosis, crepitus, or deformity. Teeth image: 2 1. Significant tenderness on palpation. Negative for trismus or surrounding erythema. Negative for gum swelling or fluctuance. Throat: Yes posterior oropharynx normal, Yes tonsils normal and Yes uvula midline Eyes General: appearance normal, both eyes and all related structures Neck Neck: Yes normal visual inspection, Yes full ROM, Yes no lymphadenopathy, Yes no meningeal signs, Yes trachea midline, Yes supple, No anterior neck swelling and No tender Chest Chest palpation & inspection: normal inspection of the chest and normal palpation of entire chest wall Resp Effort & Inspection: normal respiratory effort and able to speak in complete sentences Auscultation: clear to auscultation bilaterally Cardio Jugular venous distension: no JVD Heart sounds: S1 normal heart sound present and S2 normal heart sound present GI Inspection: Yes normal to inspection Palpation (GI): Soft to palpation, not firm, nontender, no guarding and not rigid General: No CVA tenderness and Yes no CVA tenderness Back/Spine/Pelvis Back: no CVA tenderness, No CVA tenderness and No back tenderness Skin General skin exam: no rashes or lesions noted, elasticity normal and turgor normal Neuro General: oriented to person, oriented to time, patient oriented x3, gait normal, tone normal, moves all extremities, Normal light touch and pain sensation, no meningeal signs, no focal motor deficits, CN's II-XI intact bilaterally and normal sensation to monofilament Extrem General: Yes normal to inspection, Yes full ROM and Yes capillary refill normal Psych Appearance: grossly normal, well kempt and not disheveled Medications Administered Discontinued Medications Generic Name Dose Route Start Last Admin Trade Name Freq PRN Reason Stop Dose Admin Ibuprofen 800 mg 10/11/23 12:18 10/11/23 12:20 Ibuprofen 800 Mg Tablet PO 10/11/23 12:19 800 mg ONCE ONE Administration Medical Decision Making Medical Decision Making [facility] Narrative: 28-year-old female presents to ED for right upper molar pain/right upper slight facial pain. Negative for any recent trauma, fever, chills, any dental work. Positive for right upper molar tenderness on palpation. Negative for signs of trismus, profuse oral abscess, peritonsillar abscess, Juan Jose's angina, osteomyelitis or retropharyngeal abscess. Patient explained worrisome sign informed to return to the ED immediately. Patient hypertensive tachycardic due to pain/toothache. Patient given Motrin for pain. Not suspecting sepsis. not suspecting cardiac etiology. Differential Diagnosis Differential Diagnoses: The differential diagnosis associated with the presentation includes (Tooth pain, cracked tooth,) Admission/Observation Consideration of admission/observation: Escalation of care including admission/observation considered Independent Historian Clinical information obtained from an independent historian. History obtained from or confirmed by: Other (Patient) External Record Review External record reviewed: Other (Prior visits) Prescription Management I considered prescription management with: Pain Medication and Antibiotic Discharge Plan Discharge Clinical Impression: Toothache Patient Disposition: Home, Self-Care Instructions: Toothache (ED) Additional Instructions: Recommend follow-up with dentist. Return to the ED immediately for worsening facial swelling, drooling, change in voice, neck swelling, neck pain, inability tolerate solid food/liquid, severe toothache, fever, chills, or any other concerning symptoms. Recommend warm compress 4 times a day for 15 minute on face. Prescriptions: New amoxicillin-pot clavulanate 875-125 mg tablet 1 tab PO Q12H 10 Days Qty: 20 0RF naproxen 500 mg tablet 500 mg PO BID PRN (Reason: pain) 7 Days Qty: 14 0RF No Action cetirizine 10 mg tablet 10 mg PO DAILY metoprolol succinate 25 mg tablet extended release 24 hr 12.5 mg PO DAILY Stand Alone Forms: Work/School Release Interventions: ED Discharge Assessment Last Done: 10/11/23 12:17 Discharge Date/Time: 10/11/23 12:21 Print Language: French
[2023-10-11 12:17] VITALS: BP 141/91; PULSE 119; RESP 18; TEMP 36.4; O2SAT 97
[2023-10-11] MEDS: Ibuprofen 800 MG TABLET PO (12:20)
== END 2023-10-11 12:21 | disposition home or self-care (01) ==
PROVIDERS: Emergency Provider Emergency Medicine; PCP Internal Medicine
DX: K08.89 Other specified disorders of teeth and supporting structures (principal); I10 Essential (primary) hypertension
CPT/HCPCS: 99283

== ENCOUNTER 2023-12-09 14:44 | Outpatient (RCR) | payer OTHER, SELFPAY ==
--- NOTE | 2023-12-09 16:13 | MHC.PT.EP ---
[facility] [place] Office [place] Office [place] Office [address] [phone] F: [phone] F: [phone] F: [phone] F: [phone] Physical Therapy Plan of Care Date of Evaluation: 12/09/23 Date of Surgery: Diagnosis: low back pain, lumbar strain (MD Dx) RIGHT lumbar radiculopathy (PT Dx) RS Assessment: Patient is a pleasant 28 y.o. 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 PT diagnosis is RIGHT lumbar radiculopathy due to peripheralization of symptoms that may indicate disc involvement. Patient impairments include poor posture, poor body mechanics, limited lumbar AROM, weakness in R LE, antalgic gait. Patient current functional limitations are sleeping, driving, prolonged walking, stair use, bend/squat, cleaning, put on shoes/socks. Patient will benefit from skilled PT to address aforementioned impairments and functional limitations to meet established goals. Frequency and Duration: The patient will be seen 2x/week for 4 weeks Short Term Goals: 2 weeks Patient demonstrates consistency and independence with HEP. Patient is able to centralize R LE symptoms with exercises, demonstrating understanding for management at home. Student Services Director Goals: 4 weeks Patient presents with increased lumbar flexion 80 degrees to restore lumbar flexibility for improved ADLs with lower body dressing. Patient presents with increased R hip flexion 5/5 to be able to bend/squat to sweet pickle maker 10# off floor to mimic work tasks. Treatment Plan: Modalities to reduce pain, spasms and effusion. Manual therapy to restore motion and function. Therapeutic exercise to improve strength and flexibility. Neuromuscular re-education for posture and balance. Therapeutic activities to return to functional activities of daily living. Electronically signed by: Tamara Maxwell, PT, DPT Please sign and return to therapist. Thank you for your referral.
--- NOTE | 2024-01-31 15:32 | MHC.PT.DC ---
[facility] [place] Office [place] [facility] [place] Office [address] Venus Mckay [address] [phone] F: [phone] F: [phone] F: [phone] F: [phone] Physical Therapy Discharge Report Diagnosis: low back pain, lumbar strain (MD Dx) RIGHT lumbar radiculopathy (PT Dx) RS Date of Surgery: Date of Evaluation: 12/09/23 Date of Discharge: 01/31/24 Treatments to Date: 1 Cancellations to Date: 0 No Shows to Date: 4 Discharge Status: Visit Non-compliance Discharge Summary: Rakesh Abreu did not show to any appointments after the PT initial evaluation. Therefore I am unable to determine effectiveness of PT interventions on patient condition. She is discharged for non compliance with attendance. Electronically signed by: Tamara Maxwell, PT, DPT Please sign and return to therapist. Thank you for your referral.
== END 2024-01-31 15:32 | disposition home or self-care (01) ==
LOC: HO.PT 14:44
PROVIDERS: PCP Internal Medicine; Visit Provider Emergency Medicine
DX: M54.50 Low back pain, unspecified (principal)
CPT/HCPCS: 97110; 97161

== ENCOUNTER 2023-12-13 11:51 | Outpatient (REF) | payer MEDICAID, SELFPAY ==
--- NOTE | ~2023-12-13 | US_ITS ---
EXAMINATION: US OB PELVIC AND TRANSVAGINAL CLINICAL INFORMATION: with IUD in place. Beta-hCG of 2171 COMPARISON: None. TECHNIQUE: Transabdominal and transvaginal images were obtained. FINDINGS: The uterus is anteverted. No myometrial lesion. No IUD identified. Within the endometrium there is a gestational sac measuring approximately 0.8 cm. pole with a crown-rump length of 0.35 cm corresponding to a gestational age of 6 weeks 0 days and HUGO of 08/07/2024. heart rate of 104 bpm. Nabothian cysts within the cervix. Sonographically unremarkable right ovary measuring 2.7 x 2.0 x 2.2 cm. The left ovary measures 3.3 x 2.5 x 2.8 cm with a simple cyst measuring approximate 1.6 cm. Normal Doppler central vascular flow within the right and left ovary. No pelvic free fluid. US/US OB pelvic and transvaginal IMPRESSION: 1. Intrauterine gestational sac and pole corresponding to a gestational age of 6 weeks 0 days and HUGO of 08/07/2024. heart rate of 104 BPM. 2. No IUD identified. 3. No adnexal mass or free fluid. Electronically signed by: Miguel Tadeo MD 12/13/2023 02:06 PM EDT
[2023-12-13 12:43] LABS: HCG Quantitative 2171 mIU/mL
== END 2023-12-13 11:52 | disposition home or self-care (01) ==
LOC: HO.US 11:51
PROVIDERS: PCP Internal Medicine; Visit Provider Advanced Practice Midwife
DX: Z34.90 Encounter for supervision of normal pregnancy, unspecified, unspecified trimester (principal)
CPT/HCPCS: 36415; 76801; 76817; 84702; 99212

== ENCOUNTER 2023-12-13 13:47 | Outpatient (AMB) | payer SELFPAY ==
--- NOTE | 2023-12-13 14:36 | A.OFFVIS_ITS ---
Vital Signs 12/13/23 14:38 Height 5 ft 4 in Weight 169 lb BMI 29.0 BP 118/70 Intake Visit Reasons: Stat ultrasound results Safety Security Officer Services: Safety Security Officer Present Information Interpreted: clinical only Offensive Coordinator: Offensive Coordinator Present Allergies No Known Allergies [No Known Allergies*] Allergy (Verified 12/13/23 14:38) Is last menstrual period known: Yes Last menstrual period: 10/31/23 HPI HPI Stat ultrasound results: Details: This is a problem visit arranged this morning after patient called last evening with a report of having had a positive test yesterday confirmed in the [facility] and then she remembered that she had an IUD in place and she called last night about that. She was not having any pain she had her last period around 4 weeks ago. The ultrasound has been read but the report was not available in the system but the optical engineering technician read the report to me and her uterus is anteverted with their IU S gestational sac and pole measuring 6 weeks and 0 days HUGO of 08/07/2024 heart rate of 104 consistent with early gestation. There is no IUD seen the hCG done this morning was 2171. Patient has a history of hypertension and was recommended to therefore receive her care at [facility]. I discussed with the patient that it is important to make sure she gets into care soon as certain testing is recommended and offer can not be offered until she is already set up as a patient. Patient then informed me that she is actually moving to [place] in 2 weeks. So I recommend that she seek care soon she gets [place]. [facility] Medical History Hypertension Surgical History Hx of dilation and curettage Social History Alcohol intake: never Patient Tobacco Use Status: Never used Tobacco Gender identity: Female Female Reproductive History Menstrual Age of Menarche: 11 Duration of menses: 3-5 days Date of last menstrual period: 10/31/23 Total pregnancies: 3 Full term: 2 Ab spontaneous: 1 Date of last pap smear: 10/09/21 (negative) History of abnormal pap smear: No Physical Exam Vital Signs: Last Vital Signs BP 118/70 12/13/23 14:38 BMI result Body Mass Index 29.0 Results Reviewed Results Reviewed: HCG 2171 them this morning Ultrasound has been done but not fully read yet the results was read to me by the cadd technician there is an intrauterine gestational sac and pole consistent with 6 weeks 0 days no adnexal mass or HUGO of 08/07/2024 heart rate 104 consistent with early gestation there is no IUD in place in the uterus. Assessment & Plan Assessment & Plan (1) IUD complication: Comment: Per 12/12/23 call patient stated she was with an IUD in place. PER STAT ULTRASOUND THERE WAS NO IUD IN PLACE. SIX WEEKS 0 DAY GESTATION. Code(s): T83.9XXA - Unspecified complication of genitourinary prosthetic device, implant and graft, initial encounter Category: Medical (2) Early stage of : Comment: 12/12/23 phone call patient stated she had an IUD in place and was . 12/13/2023 ultrasound gives HUGO of [id number] weeks and 0 days today. No IUD present. Code(s): Z34.90 - Encounter for supervision of normal , unspecified, unspecified trimester Category: Medical (3) Hypertension: Comment: 12/31/2022 states she has not been taking meds for at least a year secondary to missed appointments Code(s): I10 - Essential (primary) hypertension Category: Medical Plan This is a problem visit arranged this morning after patient called last evening with a report of having had a positive test yesterday confirmed in the [facility] and then she remembered that she had an IUD in place and she called last night about that. She was not having any pain she had her last period around 4 weeks ago. The ultrasound has been read but the report was not available in the system but the optical engineering technician read the report to me and her uterus is anteverted with their IU S gestational sac and pole measuring 6 weeks and 0 days HUGO of 08/07/2024 heart rate of 104 consistent with early gestation. There is no IUD seen the hCG done this morning was 2171. Patient has a history of hypertension and was recommended to therefore receive her care at [facility]. I discussed with the patient that it is important to make sure she gets into care soon as certain testing is recommended and offer can not be offered until she is already set up as a patient. Patient then informed me that she is actually moving to [place] in 2 weeks. So I recommend that she seek care soon she gets [place].. Coding Level of Care Code Est Pt Level 3 (28107) Diagnoses IUD complication T83.9XXA Early stage of Z34.90 Hypertension I10
[2023-12-13 14:38] VITALS: BP 118/70; BMI 29.0
== END 2023-12-13 15:35 | disposition home or self-care (01) ==
LOC: HO.HWSM 13:47
PROVIDERS: PCP Internal Medicine; Visit Provider Advanced Practice Midwife
DX: T83.9XXA Unspecified complication of genitourinary prosthetic device, implant and graft, initial encounter (principal)
CPT/HCPCS: 99213

== ENCOUNTER 2023-12-19 16:37 | Emergency (ER) | payer MEDICAID, SELFPAY ==
--- NOTE | ~2023-12-19 | US_ITS ---
EXAMINATION: PELVIC ULTRASOUND CLINICAL INFORMATION: Vaginal spotting COMPARISON: ultrasound December 13, 2023 TECHNIQUE: Both transabdominal and endovaginal scanning were performed. FINDINGS: Uterus measures 9.0 x 3.4 0.7 cm. There is a gestational sac present in the uterus with a yolk sac and pole seen. The crown-rump length is 0.61 cm corresponding to a gestational age of 6 weeks 3 days with an HUGO of 08/10/2024. A normal heart rate is 90 bpm was noted. Both ovaries appear normal with the right measuring 2.8 x 1.9 x 1.9 cm and the left measuring 2.6 x 2.3 x 2.6 cm. A 1.6 cm corpus luteal cyst is seen on the left. Some prominent veins are noted in the left adnexa. US/US OB pelvic and transvaginal IMPRESSION: Single live intrauterine estimated to be 6 weeks 3 days gestational age with an HUGO of 08/10/2024. Electronically signed by: Girma Braden MD 12/19/2023 08:55 PM EDT
[2023-12-19 16:48] VITALS: BP 146/92; PULSE 117; RESP 18; TEMP 36.7; O2SAT 100; BMI 29.1
--- NOTE | 2023-12-19 16:48 | ED.GENADULT ---
HPI - General Adult General Chief complaint: Vaginal Bleeding Stated complaint: 7 wks bleeding Time Seen by Provider: 12/20/23 00:14 Source: patient Mode of arrival: ambulatory Limitations: no limitations History of Present Illness HPI narrative: Patient is a 28-year-old female, G4 [id number] presents emergency department for evaluation of vaginal bleeding. Reports 1 hour prior to arrival to hospital she developed very light vaginal spotting light pink in color, reports she is currently 7 weeks . She denies any associated pain, denies any dysuria, urinary frequency/urgency/hesitancy.. She states that she was evaluated by Ob recently, she is moving to [place] so she plans to establish care there. Denies any abdominal trauma. Related Data Previous Rx's ?Medication ?Instructions ?Recorded vitamin with calcium 1 tab PO DAILY 90 days #90 tabs 12/14/23 no.72-iron 27 mg-folic acid 1 mg tablet ( Vitamins Plus Low Iron) Allergies Allergy/AdvReac Type Severity Reaction Status Date / Time No Known Allergies Allergy Verified 12/19/23 16:50 [No Known Allergies*] Review of Systems Review of Systems: Yes all other systems are reviewed and are negative [facility] Past Medical History Attestation statement: The following information was validated with the patient. Source: old records reviewed Medical History Hypertension Surgical History Hx of dilation and curettage Social History Social History Alcohol intake: never Patient Tobacco Use Status: Never used Tobacco Smoked in Last 30 Days: No Use of substances other than those prescribed or required for medical reasons: No Advance Directives: No Advance Directives Information Provided: No Do you have a plan to hurt others: No Plan Patient : Yes Gender identity: Female Physical Exam ED Vital Signs: Vital Signs - 24 hr 12/19/23 16:48 12/20/23 00:28 12/20/23 01:26 Temperature 98.1 F 98.3 F 98.3 F Pulse Rate 117 H 94 94 Respiratory Rate 18 20 20 Blood Pressure 146/92 H 142/94 H 142/94 H Pulse Oximetry 100 100 100 Oxygen Delivery Method Room Air Room Air Room Air BMI result Body Mass Index 29.1 Appearance: Alert.?Oriented to person, place and time. No acute distress.?Normal affect. Eyes: Pupils equal, round and reactive to light.? ENT: Pharynx normal.?? Neck: Normal inspection.? Neck supple.?? CVS: Heart sounds normal. Normal heart rate and rhythm.? Pulses normal.?? Respiratory: No respiratory distress.? Lung sounds clear to auscultation bilaterally?? Abdomen: Soft and non-tender. Normoactive bowel sounds. No CVA tenderness Skin: Skin warm and dry.? Normal skin color.? ? Extremities: No lower extremity edema.? Neuro: Moves all extremities spontaneously. Sensation intact bilaterally. Ambulates with normal steady gait. Course Course Course Narrative: RME performed by Sarah Beth Cronin PA-C. Patient is a 28 year old assigned female at presenting to the emergency department with vaginal bleeding in . Patient states that she is 7 weeks and started to have some bleeding today. Detailed physical exam and review of systems are deferred to the beam sealer. Labs and imaging ordered. Patient placed back in the waiting room pending room availability and results. Reevaluation(s) Reevaluation #1: . Medical Decision Making Medical Decision Making MDM Narrative: Patient is a 28-year-old female presenting to emergency department for evaluation of light vaginal bleeding described as spotting as per HPI. This occurred prior to arrival and has had no further episodes. On review of labs and imaging obtained she has no anemia that would require transfusion, no thrombocytopenia. She is Rh positive will not require RhoGAM. No electrolyte derangement. No ALEX. Ultrasound revealing single IUP and detectable heart rate. These findings were discussed with patient, I did advise that light vaginal bleeding/spotting can be normal for some women during early however we discussed strict return precautions and worrisome signs and symptoms that may indicate miscarriage. She verbalizes understanding of this. Her abdominal examination is benign. She declines a genital or pelvic examination. I discussed with patient having urinalysis obtained to exclude infection as this may also cause bleeding however she insists that the bleeding is vaginal and not within her urine, would like to be discharged home does not want to stay any longer for urinalysis to be obtained Differential Diagnosis Differential Diagnoses: The differential diagnosis associated with the presentation includes (See narrative above) Admission/Observation Consideration of admission/observation: Escalation of care including admission/observation considered Lab Data MDM Lab Attestation statement: I reviewed the patient's lab results. (See narrative above) 12/19/23 18:10 12/19/23 18:10 Labs: Lab Results 12/19/23 12/19/23 Range/Units 18:10 18:35 WBC 8.5 (4.8-10.8) X10*3/uL RBC 4.22 (4.20-5.50) X10*6/uL Hgb 12.5 (12.0-16.0) g/dl Hct 36.5 L (37.0-47.0) % MCV 86.5 (80.0-98.0) fL MCH 29.6 (27.0-33.0) pg MCHC 34.2 (31.0-35.0) g/dl RDW 12.7 (11.0-16.0) % Plt Count 294 (160-400) X10*3/uL MPV 9.1 L (9.4-12.3) fL Immature Gran % (Auto) 1.3 H (0.0-0.4) % Neut % (Auto) 70.5 (45-73) % Lymph % (Auto) 18.0 L (20-40) % [place] % (Auto) 9.5 (2-11) % Eos % (Auto) 0.6 (0-4) % Baso % (Auto) 0.1 (0-2) % Lymph # (Auto) 1.5 (1.2-4.9) X10*3/uL [place] # (Auto) 0.8 (0.1-1.2) X10*3/uL Eos # (Auto) 0.1 (0.0-0.4) X10*3/uL Baso # (Auto) 0.0 (0.0-0.2) X10*3/uL Abs Immat Gran (auto) 0.11 H (0.00-0.03) X10*3/uL Absolute Neuts (auto) 6.0 (2.0-8.3) x10*3/uL Absolute Nucleated RBC 0.000 (0.0-0.012) X10*3/uL Nucleated RBC % (auto) 0.0 (0.0-0.2) /100WBC PT 13.8 H (11.1-13.3) SEC INR 1.1 (0.9-1.1) APTT 31.5 (26.0-36.8) SEC Sodium 140 (135-145) mmol/L Potassium 3.6 (3.3-5.1) mmol/L Chloride 108 (96-108) mmol/L Carbon Dioxide 26 (22-29) mmol/L Anion Gap 10 L (12-20) BUN 7 L (9-16) mg/dL Creatinine 0.81 (0.5-1.4) mg/dL Estim Creat Clear Calc 102.9 Estimated GFR > 60 Random Glucose 94 (60-115) mg/dL Calcium 9.2 (8.4-10.2) mg/dL Magnesium 2.2 (1.6-2.6) mg/dL Total Bilirubin 0.4 (0.0-1.0) mg/dL AST 14 (5-31) U/L ALT 12 (0-31) U/L Alkaline Phosphatase 47 (39-117) U/L Total Protein 7.3 (6.5-8.0) g/dL Albumin 4.6 (3.5-5.0) g/dL Beta HCG, Quant 3591 mIU/mL Blood Type A Positive Antibody Screen NEGATIVE Radiology Impression Discussion of test interpretation with radiology: I have reviewed the radiologist's reading. Radiologist Impression: US/US OB pelvic and transvaginal IMPRESSION: Single live intrauterine estimated to be 6 weeks 3 days gestational age with an HUGO of 08/10/2024. Independent Historian Clinical information obtained from an independent historian. History obtained from or confirmed by: Spouse External Record Review External record reviewed: Outpatient record Discharge Plan Discharge Clinical Impression: Vaginal bleeding affecting early Patient Disposition: Home, Self-Care Additional Instructions: As discussed, your ultrasound continues to measure with expected gestation in comparison to priors, and a heart rate is detected. This is very reassuring. As you have described your bleeding is very minimal. Some women can experienced light spotting in early that can be normal. Your blood counts do not show a significant drop which is reassuring. If you notice an increase in your bleeding, associated pain, or any additional symptoms or concerns you should contact your primary care provider or consider re-evaluation in an emergency department. As discussed given your history of hypertension it is important that you establish care with an OB provider once you move to your new location in [place]. Prescriptions: No Action Vitamin Plus Low Iron 27 mg iron- 1 mg tablet 1 tab PO DAILY 90 Days Qty: 90 0RF Referrals: Mercy French MD [Primary Care Provider] - Interventions: ED Discharge Assessment Last Done: 12/20/23 01:26 Discharge Date/Time: 12/20/23 01:28 Print Language: Divehi
[2023-12-19 18:15] LABS: MANUAL DIFF FLAG NO
[2023-12-19 18:24] LABS: INTERNATIONAL NORM RATIO 1.1 (0.9-1.1); Prothrombin Time 13.8 SEC (11.1-13.3)
[2023-12-19 18:26] LABS: Partial Thromboplastin Time 31.5 SEC (26.0-36.8)
[2023-12-19 18:29] LABS: Basophils Percent Auto 0.1 % (0-2); Eosinophils Absolute Auto 0.1 X10*3/uL (0.0-0.4); Eosinophils Percent Auto 0.6 % (0-4); Hematocrit 36.5 % (37.0-47.0); Hemoglobin 12.5 g/dl (12.0-16.0); Imm Gran Abs Auto 0.11 X10*3/uL (0.00-0.03); Imm Gran Pct Auto 1.3 % (0.0-0.4); Lymphocytes Absolute Auto 1.5 X10*3/uL (1.2-4.9); Mean Corpuscular HGB Conc 34.2 g/dl (31.0-35.0); Mean Corpuscular Hemoglobin 29.6 pg (27.0-33.0); Mean Corpuscular Volume 86.5 fL (80.0-98.0); Mean Platelet Volume 9.1 fL (9.4-12.3); Monocytes Absolute Auto 0.8 X10*3/uL (0.1-1.2); Monocytes Percent Auto 9.5 % (2-11); Neutrophils Percent Auto 70.5 % (45-73); Platelet Count 294 X10*3/uL (160-400); Red Blood Count 4.22 X10*6/uL (4.20-5.50); Red Cell Distribution Width 12.7 % (11.0-16.0); White Blood Count 8.5 X10*3/uL (4.8-10.8)
[2023-12-19 18:34] LABS: Alanine Aminotransferase 12 U/L (0-31); Albumin Level 4.6 g/dL (3.5-5.0); Alkaline Phosphatase 47 U/L (39-117); Anion Gap 10 (12-20); Aspartate Amino Transferase 14 U/L (5-31); Bilirubin Total 0.4 mg/dL (0.0-1.0); Blood Urea Nitrogen 7 mg/dL (9-16); Calcium 9.2 mg/dL (8.4-10.2); Carbon Dioxide 26 mmol/L (22-29); Chloride 108 mmol/L (96-108); Creatinine Clr Calc Pharmacy 102.9; Estimated Glomerular Filt Rate > 60; Glucose Random 94 mg/dL (60-115); Magnesium 2.2 mg/dL (1.6-2.6); Potassium 3.6 mmol/L (3.3-5.1); Sodium 140 mmol/L (135-145); Total Protein 7.3 g/dL (6.5-8.0)
[2023-12-19 19:16] LABS: HCG Quantitative 3591 mIU/mL
[2023-12-20 00:28] VITALS: BP 142/94; PULSE 94; RESP 20; TEMP 36.8; O2SAT 100
[2023-12-20 01:26] VITALS: BP 142/94; PULSE 94; RESP 20; TEMP 36.8; O2SAT 100
== END 2023-12-20 01:28 | disposition home or self-care (01) ==
PROVIDERS: Physician Assistant Medical; Emergency Provider Internal Medicine; PCP Internal Medicine
DX: O20.9 Hemorrhage in early pregnancy, unspecified (principal); R10.2 Pelvic and perineal pain; Z3A.01 Less than 8 weeks gestation of pregnancy; Z79.899 Other long term (current) drug therapy
CPT/HCPCS: 36415; 76801; 76817; 80053; 83735; 84702; 85025; 85610; 85730; 86850; 86900; 86901; 99284

== ENCOUNTER 2023-12-22 23:17 | Emergency (ER) | payer MEDICAID, SELFPAY ==
--- NOTE | ~2023-12-22 | US_ITS ---
EXAMINATION: US OBSTETRICAL ULTRASOUND CLINICAL INFORMATION: patient with vaginal bleeding. COMPARISON: December 19, 2023 LMP: October 31, 2023. Gestational age by maternal dates is 7 weeks and 4 days. Estimated date of delivery by maternal dates is November 05, 2024. TECHNIQUE: Transabdominal and transvaginal obstetrical ultrasound performed. FINDINGS: The uterus is normal in size and appearance measuring 8.6 x 2.1 x 4.3 cm. Endometrium is 1.2 cm. No gestational sac is identified. An intrauterine gestation was seen on previous. MATERNAL ADNEXA: The right maternal ovary measures 3. 2 x 2 by 1.7 cm. The left maternal ovary measures 2.4 x 2.3 x 2.2 cm. There is no significant maternal adnexal mass. No maternal pelvic ascites. US/US OB pelvic and transvaginal IMPRESSION: No intrauterine gestation identified on current examination consistent with loss. Electronically signed by: Giles Camacho MD 12/23/2023 06:13 AM EDT
[2023-12-22 23:57] VITALS: BP 141/97; PULSE 116; RESP 16; TEMP 36.9; O2SAT 97; BMI 29.9
[2023-12-23 00:15] LABS: MANUAL DIFF FLAG NO
[2023-12-23 00:17] LABS: Basophils Percent Auto 0.1 % (0-2); Eosinophils Percent Auto 0.4 % (0-4); Hematocrit 36.8 % (37.0-47.0); Hemoglobin 12.5 g/dl (12.0-16.0); Imm Gran Abs Auto 0.02 X10*3/uL (0.00-0.03); Imm Gran Pct Auto 0.2 % (0.0-0.4); Lymphocytes Absolute Auto 2.6 X10*3/uL (1.2-4.9); Lymphocytes Percent Auto 24.8 % (20-40); Mean Corpuscular Hemoglobin 29.5 pg (27.0-33.0); Mean Corpuscular Volume 86.8 fL (80.0-98.0); Monocytes Absolute Auto 0.8 X10*3/uL (0.1-1.2); Monocytes Percent Auto 7.5 % (2-11); Neutrophils Absolute Auto 6.9 x10*3/uL (2.0-8.3); Platelet Count 268 X10*3/uL (160-400); Red Blood Count 4.24 X10*6/uL (4.20-5.50); Red Cell Distribution Width 12.5 % (11.0-16.0); White Blood Count 10.3 X10*3/uL (4.8-10.8)
[2023-12-23 00:30] LABS: Alanine Aminotransferase 12 U/L (0-31); Albumin Level 4.6 g/dL (3.5-5.0); Alkaline Phosphatase 44 U/L (39-117); Anion Gap 11 (12-20); Aspartate Amino Transferase 13 U/L (5-31); Bilirubin Total 0.3 mg/dL (0.0-1.0); Blood Urea Nitrogen 7 mg/dL (9-16); Calcium 9.4 mg/dL (8.4-10.2); Carbon Dioxide 23 mmol/L (22-29); Chloride 108 mmol/L (96-108); Creatinine Clr Calc Pharmacy 106.8; Estimated Glomerular Filt Rate > 60; Glucose Random 92 mg/dL (60-115); Potassium 3.2 mmol/L (3.3-5.1); Sodium 139 mmol/L (135-145); Total Protein 7.4 g/dL (6.5-8.0)
[2023-12-23 02:03] LABS: Appearance Urine Cloudy; Color Urine Red; Glucose Urine UA Negative (Negative); Leukocyte Esterase Urine Moderate (2+) (Negative); Nitrite Urine Negative (Negative); PH 7.5 (5.0-9.0); Specific Gravity - Urine 1.015 (1.005-1.025); UMIC TRIGGER UACC YES; Urine Blood Large (3+) (Negative); Urine Ketones Trace mg/dL (Negative); Urine Protein 30 (1+) mg/dL (Neg-Trace)
[2023-12-23 02:07] LABS: Bacteria Urine None Seen (None Seen); Hyaline Casts Urine 0-2 /LPF (0-2); RBC Urine >20 /HPF (0-2); UACC Culture Trigger YES
--- NOTE | 2023-12-23 03:32 | ED_ITS ---
HPI - Female Genitourinary General Chief complaint: Vaginal Bleeding Stated complaint: 7 weeks preg, vag bleeding Time Seen by Provider: 12/23/23 03:25 Source: patient Mode of arrival: ambulatory Limitations: no limitations History of Present Illness ED Provider: DR. REMINGTON KEVIN HPI Narrative: patient comes to the emergency room accompanied by her domestic partner. Patient states that for the last 4 days she has been having vaginal spotting, hematuria and dysuria. Patient was seen here 4 days ago for vaginal spotting. Ultrasound showed a live intrauterine . Patient denies any abdominal cramping, no fever chills, no flank pain. Related Data Previous Rx's ?Medication ?Instructions ?Recorded vitamin with calcium 1 tab PO DAILY 90 days #90 tabs 12/14/23 no.72-iron 27 mg-folic acid 1 mg tablet ( Vitamins Plus Low Iron) Allergies Allergy/AdvReac Type Severity Reaction Status Date / Time No Known Allergies Allergy Verified 12/22/23 23:58 [No Known Allergies*] Review of Systems 2 Review of Systems: Constitutional : No Weight loss, No Fever, No Chills, No Night Sweats, No Fatigue, No Malaise ENT/Mouth : No Hearing loss, No Ear Pain, No Nasal Congestion, No Sinus Pain, No Hoarseness, No sore throat, No Rhinorrhea, No Swallowing Difficulty Eyes: No Eye Pain, No Swelling, No Redness, No Foreign Body, No Discharge, No Vision Changes Cardiovascular : No Chest Pain, No SOB, No Dyspnea on Exertion, No Orthopnea, No Edema, No Palpitations Respiratory : No Cough, No Sputum, No Wheezing, No Smoke Exposure, No Dyspnea Gastrointestinal : No Nausea, No Vomiting, No Diarrhea, No Constipation, No abdominal Pain, No Hematochezia, No Melena Genitourinary : Complaining of spotting, complaining of dysuria and hematuria and frequency, No Urinary Incontinence, No Urgency, No Flank Pain, No Urinary Flow Changes, No Hesitancy Musculoskeletal : No joint pain, No Myalgias, No Joint Swelling Skin : No Skin Lesions, No rash Neuro : No Weakness, No Numbness, No Paresthesias, No Loss of Consciousness, No Dizziness, No Headache Psych : No Anxiety/Panic, No Depression, No SI/HI/AH/VH, No Social Issues, Heme/Lymph: No Bruising, No Bleeding,No Lymphadenopathy Endocrine : No Polyuria, No Polydipsia, No Temperature Intolerance [facility] Past Medical History Medical History Hypertension Surgical History Hx of dilation and curettage Social History Social History Alcohol intake: never Patient Tobacco Use Status: Never used Tobacco Smoked in Last 30 Days: No Use of substances other than those prescribed or required for medical reasons: No Advance Directives: No Advance Directives Information Provided: No Do you have a plan to hurt others: No Plan Patient : Yes Gender identity: Female Physical Exam 2 Vital Signs: Vital Signs: Last Vital Signs Temp 98.2 F 12/23/23 05:55 Pulse 110 H 12/23/23 05:55 Resp 16 12/23/23 05:55 BP 129/87 12/23/23 05:55 Pulse Ox 100 12/23/23 05:55 O2 Del Method Room Air 12/23/23 05:55 BMI result Body Mass Index 29.9 Const: Other: Appearance: Alert. Oriented X3. No acute distress. Eyes: Pupils equal, round and reactive to light. ENT: Pharynx normal. Neck: Normal inspection. Neck supple. No lymph nodes noted. No crepitus CVS: Normal heart rate and rhythm. Pulses normal. Normal S1 and S2 Respiratory: No respiratory distress. Breath sounds normal. No Wheezing. No rales Abdomen: Soft and nontender. No rigidity. No distention. Pelvic ultrasound: patient's cervix is open, there is a large piece of tissue protruding through the cervix. With loop labs, the tissue was removed. Seems that bleeding slowed down. Skin: Skin warm and dry. Normal skin color. Normal skin turgor. Extremities: No lower extremity edema. No Lacerations. No Rash Neuro: Oriented X 3. No motor deficit. No sensory deficit. Moving all extremities. No slurred speech. CN 2 through 12 grossly intact Psych: calm, cooperative, normal affect Medications Administered Discontinued Medications Generic Name Dose Route Start Last Admin Trade Name Freq PRN Reason Stop Dose Admin Cefuroxime Axetil 250 mg 12/23/23 03:37 12/23/23 04:13 Cefuroxime Axetil 250 Mg Tablet PO 12/23/23 03:38 250 mg ONCE ONE Administration Medical Decision Making Medical Decision Making [facility] Narrative: my interpretation of labs, normal hematology and chemistry. Patient's urinalysis is positive for a UTI. Patient will likely need something more effective than Macrobid. Patient given the 1st dose of cefuroxime p.o. in the ED. - patient's serology test pending, patient swabs were sent off to the lab for bacterial vaginosis, Trichomonas, CT and chlamydia, as his tests may be helpful for her future OBGYN visit - Based on physical exam: This is a miscarriage. Formal ultrasound pending. - my interpretation of ultrasound: demise, no activity seen. Radiology report pending - radiology report: No intrauterine gestation identified on current examination consistent with lost - patient and her partner have been informed of the miscarriage. - Differential Diagnosis Differential Diagnoses: The differential diagnosis associated with the presentation includes ( ) Admission/Observation Consideration of admission/observation: Escalation of care including admission/observation considered ( given patient's symptoms, observation was considered) Lab Data [facility] Lab Attestation statement: I reviewed the patient's lab results. 12/23/23 00:12 12/23/23 00:12 Labs: Lab Results 12/23/23 12/23/23 Range/Units 00:12 01:53 WBC 10.3 (4.8-10.8) X10*3/uL RBC 4.24 (4.20-5.50) X10*6/uL Hgb 12.5 (12.0-16.0) g/dl Hct 36.8 L (37.0-47.0) % MCV 86.8 (80.0-98.0) fL MCH 29.5 (27.0-33.0) pg MCHC 34.0 (31.0-35.0) g/dl RDW 12.5 (11.0-16.0) % Plt Count 268 (160-400) X10*3/uL MPV 9.0 L (9.4-12.3) fL Immature Gran % (Auto) 0.2 (0.0-0.4) % Neut % (Auto) 67.0 (45-73) % Lymph % (Auto) 24.8 (20-40) % [place] % (Auto) 7.5 (2-11) % Eos % (Auto) 0.4 (0-4) % Baso % (Auto) 0.1 (0-2) % Lymph # (Auto) 2.6 (1.2-4.9) X10*3/uL [place] # (Auto) 0.8 (0.1-1.2) X10*3/uL Eos # (Auto) 0.0 (0.0-0.4) X10*3/uL Baso # (Auto) 0.0 (0.0-0.2) X10*3/uL Abs Immat Gran (auto) 0.02 (0.00-0.03) X10*3/uL Absolute Neuts (auto) 6.9 (2.0-8.3) x10*3/uL Absolute Nucleated RBC 0.000 (0.0-0.012) X10*3/uL Nucleated RBC % (auto) 0.0 (0.0-0.2) /100WBC Sodium 139 (135-145) mmol/L Potassium 3.2 L (3.3-5.1) mmol/L Chloride 108 (96-108) mmol/L Carbon Dioxide 23 (22-29) mmol/L Anion Gap 11 L (12-20) BUN 7 L (9-16) mg/dL Creatinine 0.79 (0.5-1.4) mg/dL Estim Creat Clear Calc 106.8 Estimated GFR > 60 Random Glucose 92 (60-115) mg/dL Calcium 9.4 (8.4-10.2) mg/dL Total Bilirubin 0.3 (0.0-1.0) mg/dL AST 13 (5-31) U/L ALT 12 (0-31) U/L Alkaline Phosphatase 44 (39-117) U/L Total Protein 7.4 (6.5-8.0) g/dL Albumin 4.6 (3.5-5.0) g/dL Urine Color Red A Urine Appearance Cloudy Urine pH 7.5 (5.0-9.0) Ur Specific [place] 1.015 (1.005-1.025) Urine Protein 30 (1+) H (Neg-Trace) mg/dL Urine Glucose (UA) Negative (Negative) mg/dL Urine Ketones Trace (Negative) mg/dL Urine Blood Large (3+) H (Negative) Urine Nitrite Negative (Negative) Ur Leukocyte Esterase Moderate (2+) H (Negative) Urine RBC >20 H (0-2) /HPF Urine WBC 11-20 H (0-5) /HPF Ur Squamous Epith Cells 3-5 (0-2) /HPF Urine Bacteria None Seen (None Seen) Hyaline Casts 0-2 (0-2) /LPF Independent Interpretation I performed an independent interpretation of an: Ultrasound Radiology Impression Discussion of test interpretation with radiology: I have reviewed the radiologist's reading. Radiologist Impression: FINDINGS: The uterus is normal in size and appearance measuring 8.6 x 2.1 x 4.3 cm. Endometrium is 1.2 cm. No gestational sac is identified. An intrauterine gestation was seen on previous. MATERNAL ADNEXA: The right maternal ovary measures 3. 2 x 2 by 1.7 cm. The left maternal ovary measures 2.4 x 2.3 x 2.2 cm. There is no significant maternal adnexal mass. No maternal pelvic ascites. US/US OB pelvic and transvaginal IMPRESSION: No intrauterine gestation identified on current examination consistent with loss. Critical Care Time Critical Care Time Critical Care Time: Yes Total Critical Care Time: 60 Attestation: I have personally provided critical care time. Time includes review of lab data, radiology results, discussion with consultants, and monitoring for potential decompensation. Intervention performed as documented. Discharge Plan Discharge Clinical Impression: Complete miscarriage Patient Disposition: Home, Self-Care Instructions: Miscarriage (ED) Additional Instructions: if you experience any heavy vaginal bleeding, please return immediately to the emergency room. It is expected that for the next few days you will have mild vaginal bleeding and spotting. Please follow-up with your primary care physician tomorrow. If you have any worsening or new symptoms, please return to the emergency room or call 911 Prescriptions: No Action Vitamin Plus Low Iron 27 mg iron- 1 mg tablet 1 tab PO DAILY 90 Days Qty: 90 0RF Referrals: Thierno Piña MD [Physician] - 12/26/23 Print Language: Mongolian
--- NOTE | 2023-12-23 03:47 | ED_ITS ---
HPI - General Chief complaint: Vaginal Bleeding Stated complaint: 7 weeks preg, vag bleeding Time Seen by Provider: 12/23/23 03:25 Source: patient Mode of arrival: ambulatory Limitations: no limitations History of Present Illness ED Provider: Dr. Agustina Dickson HPI Narrative: patient is at approximately 7 weeks of gestational age. Patient comes to the emergency room complaining of vaginal bleeding/ spotting. Related Data Previous Rx's ?Medication ?Instructions ?Recorded vitamin with calcium 1 tab PO DAILY 90 days #90 tabs 12/14/23 no.72-iron 27 mg-folic acid 1 mg tablet ( Vitamins Plus Low Iron) Allergies Allergy/AdvReac Type Severity Reaction Status Date / Time No Known Allergies Allergy Verified 12/22/23 23:58 [No Known Allergies*] [facility] Past Medical History Medical History Hypertension Surgical History Hx of dilation and curettage Social History Social History Alcohol intake: never Patient Tobacco Use Status: Never used Tobacco Advance Directives: No Advance Directives Information Provided: No Do you have a plan to hurt others: No Plan Gender identity: Female Physical Exam 2 Vital Signs: Vital Signs: Last Vital Signs Temp 98.5 F 12/22/23 23:57 Pulse 116 H 12/22/23 23:57 Resp 16 12/22/23 23:57 BP 141/97 H 12/22/23 23:57 Pulse Ox 97 12/22/23 23:57 O2 Del Method Room Air 12/22/23 23:57 BMI result Body Mass Index 29.9 Medical Decision Making Lab Data 12/23/23 00:12 12/23/23 00:12 Labs: Lab Results 12/23/23 12/23/23 Range/Units 00:12 01:53 WBC 10.3 (4.8-10.8) X10*3/uL RBC 4.24 (4.20-5.50) X10*6/uL Hgb 12.5 (12.0-16.0) g/dl Hct 36.8 L (37.0-47.0) % MCV 86.8 (80.0-98.0) fL MCH 29.5 (27.0-33.0) pg MCHC 34.0 (31.0-35.0) g/dl RDW 12.5 (11.0-16.0) % Plt Count 268 (160-400) X10*3/uL MPV 9.0 L (9.4-12.3) fL Immature Gran % (Auto) 0.2 (0.0-0.4) % Neut % (Auto) 67.0 (45-73) % Lymph % (Auto) 24.8 (20-40) % [place] % (Auto) 7.5 (2-11) % Eos % (Auto) 0.4 (0-4) % Baso % (Auto) 0.1 (0-2) % Lymph # (Auto) 2.6 (1.2-4.9) X10*3/uL [place] # (Auto) 0.8 (0.1-1.2) X10*3/uL Eos # (Auto) 0.0 (0.0-0.4) X10*3/uL Baso # (Auto) 0.0 (0.0-0.2) X10*3/uL Abs Immat Gran (auto) 0.02 (0.00-0.03) X10*3/uL Absolute Neuts (auto) 6.9 (2.0-8.3) x10*3/uL Absolute Nucleated RBC 0.000 (0.0-0.012) X10*3/uL Nucleated RBC % (auto) 0.0 (0.0-0.2) /100WBC Sodium 139 (135-145) mmol/L Potassium 3.2 L (3.3-5.1) mmol/L Chloride 108 (96-108) mmol/L Carbon Dioxide 23 (22-29) mmol/L Anion Gap 11 L (12-20) BUN 7 L (9-16) mg/dL Creatinine 0.79 (0.5-1.4) mg/dL Estim Creat Clear Calc 106.8 Estimated GFR > 60 Random Glucose 92 (60-115) mg/dL Calcium 9.4 (8.4-10.2) mg/dL Total Bilirubin 0.3 (0.0-1.0) mg/dL AST 13 (5-31) U/L ALT 12 (0-31) U/L Alkaline Phosphatase 44 (39-117) U/L Total Protein 7.4 (6.5-8.0) g/dL Albumin 4.6 (3.5-5.0) g/dL Urine Color Red A Urine Appearance Cloudy Urine pH 7.5 (5.0-9.0) Ur Specific [place] 1.015 (1.005-1.025) Urine Protein 30 (1+) H (Neg-Trace) mg/dL Urine Glucose (UA) Negative (Negative) mg/dL Urine Ketones Trace (Negative) mg/dL Urine Blood Large (3+) H (Negative) Urine Nitrite Negative (Negative) Ur Leukocyte Esterase Moderate (2+) H (Negative) Urine RBC >20 H (0-2) /HPF Urine WBC 11-20 H (0-5) /HPF Ur Squamous Epith Cells 3-5 (0-2) /HPF Urine Bacteria None Seen (None Seen) Hyaline Casts 0-2 (0-2) /LPF Discharge Plan Discharge Prescriptions: No Action Vitamin Plus Low Iron 27 mg iron- 1 mg tablet 1 tab PO DAILY 90 Days Qty: 90 0RF Print Language: Ukrainian
[2023-12-23] MEDS: cefuroxime axetiL 250 MG TABLET PO (04:13)
[2023-12-23 05:55] VITALS: BP 129/87; PULSE 110; RESP 16; TEMP 36.8; O2SAT 100
[2023-12-23 06:55] VITALS: BP 129/87; PULSE 110; RESP 16; TEMP 36.8; O2SAT 100
[2023-12-23 12:07] LABS: CT PCR NOT DETECTED (Not Detect.); NG PCR NOT DETECTED (Not Detect.)
[2023-12-23 13:05] LABS: Bacterial Vaginosis PCR NEGATIVE (Negative); Candida Group PCR NOT DETECTED (Not Detect); Candida glab krusei PCR NOT DETECTED (Not Detect); Trichomonas vaginalis PCR NOT DETECTED (Not Detect)
== END 2023-12-23 06:50 | disposition home or self-care (01) ==
PROVIDERS: Emergency Provider Emergency Medicine; PCP Internal Medicine
DX: O03.9 Complete or unspecified spontaneous abortion without complication (principal); Z3A.01 Less than 8 weeks gestation of pregnancy
CPT/HCPCS: 0352U; 36415; 76801; 76817; 80053; 81001; 81003; 85025; 87086; 87147; 87491; 87591; 99284